=== PATIENT | male | born 1995 ===

== ENCOUNTER 2016-11-14 19:12 | Emergency (ER) | payer OTHER ==
[2016-11-14 19:41] VITALS: BP 123/69
[2016-11-14] MEDS ORDERED: Ondansetron ODT TAB* 4 MG PO ONE (20:34)
--- NOTE | 2016-11-14 20:38 | UC ---
I, Jose Juan,Nigel, scribed for Lazara Miles DO on 11/14/16 at 2009 . Abdominal Pain Male HPI - HPI Summary HPI Summary: THis 21 y/o male presents to [facility] for abd discomfort since yesterday 1700 PM. Pt started n/v, watery diarrhea, throat pain after n/v, and had trouble tolerating flluid and food. 8x episodes n/v and 5x episodes of diarrhea since time of onset. Pt denies any blood noted in diarrhea. Negative fever, chills, cough, dysuria, or other urinary symptoms. Positive intermittent MALONE last night that is currently resolved. He denies any PMHx. FHx is positive for DM, HTN, and cardiac dz. Pt is nonsmoker. Pt did not have any recent exposure to farm water, reptilian pet, or any recent travel. He is an [employer] student. Plan of care involving Zofran treatment and nanette tea is discussed with pt and mother, and they are agreeable. Questions are answered about Getorade and BRAT diet. - History of Current Complaint Chief Complaint: UCAbdominalPain Stated Complaint: VOMITING DIRREAHA Time Seen by Provider: 11/14/16 19:54 Hx Obtained From: Patient, Family/[employer] Helper - Mother Onset/Duration: Gradual Onset, Still Present Timing: Constant Severity Initially: Mild Severity Currently: Moderate Location: Diffuse Radiates: No Character: Aching Aggravating Factor(s):: Food Alleviating Factor(s): Nothing Associated Signs And Symptoms: Positive: Nausea, Vomiting, Diarrhea - Allergies/Home Medications Allergies/Adverse Reactions: Allergies Allergy/AdvReac Type Severity Reaction Status Date / Time No Known Allergies Allergy Verified 11/14/16 19:40 PMH/Surg Hx/FS Hx/Imm Hx Previously Healthy: Yes - Mother and pt deny any PMHx - Surgical History Surgical History: None - Family History Known Family History: Positive: Cardiac Disease, Hypertension, Diabetes - Social History Occupation: Student - [employer] Alcohol Use: None Substance Use Type: None Smoking Status (MU): Never Smoked Tobacco Review of Systems Constitutional: Negative Skin: Negative Eyes: Negative ENT: Sore Throat Respiratory: Negative Cardiovascular: Negative Gastrointestinal: Abdominal Pain, Vomiting, Diarrhea Genitourinary: Negative Motor: Negative Neurovascular: Negative Musculoskeletal: Negative Neurological: Headache - intermittent. Currently resolved Psychological: Negative All Other Systems Reviewed And Are Negative: Yes Physical Exam Triage Information Reviewed: Yes Appearance: Well-Appearing, No Pain Distress, Obese Vital Signs: Initial Vital Signs Temp 99.6 F 11/14/16 19:36 Pulse 90 11/14/16 19:36 Resp 16 11/14/16 19:36 BP 123/69 11/14/16 19:36 Pulse Ox 100 11/14/16 19:36 Vital Signs Reviewed: Yes Eyes: Positive: Conjunctiva Clear. Negative: Discharge ENT: Positive: Hearing grossly normal. Negative: Muffled/hoarse voice Neck: Positive: Supple, Nontender Respiratory: Positive: Lungs clear, Normal breath sounds, No respiratory distress, No accessory muscle use Abdomen Description: Positive: Soft, Other: - mild diffuse tenderness, most notable at LLQ. Negative: CVA Tenderness (R), CVA Tenderness (L), Distended, Guarding, McBurney's Point Tenderness, Peritoneal Signs Bowel Sounds: Positive: Hyperactive Musculoskeletal Exam: Normal Neurological: Positive: Alert, Muscle Tone Normal Psychological: Positive: Normal Response To Family Skin Exam: Normal, Other - warm, dry, color normal Abd Pain Male Course/Dx - Differential Dx/Clinical Impression Differential Diagnosis/HQI/PQRI: Other - gastroenteritis, food poisoning Provider Diagnoses: Gastroenteritis Discharge - Discharge Plan Condition: Stable Disposition: HOME Prescriptions: Ondansetron TAB* [Zofran Tab*] 4 mg PO Q6H PRN #10 tab PRN Reason: Nausea/Vomiting Patient Education Materials: Ondansetron (By mouth), Gastroenteritis (ED), Nutrition Tips for Relief of Diarrhea (ED) Additional Instructions: TRY NANETTE TEA FOR FOR YOUR NAUSEA AND VOMITING. IF NANETTE DOES NOT ADAQUATELY CONTROL YOUR SYMPTOMS, YOU CAN TRY ZOFRAN. The documentation as recorded by the Jose Juan harding Soohyun accurately reflects the service I personally performed and the decisions made by , Lazara Miles DO.
== END 2016-11-14 20:44 | disposition home or self-care (01) ==
LOC: UCEAST 19:12
DX: K52.9 Noninfective gastroenteritis and colitis, unspecified (principal)
CPT/HCPCS: 99202; A9270-GY; G0463